=== PATIENT | female | born 1950 ===

== ENCOUNTER 2018-07-29 10:43 | Day surgery (SDC) | payer MEDICARE, MEDICAID ==
[2018-07-20 14:12] VITALS: BMI 35.9
[2018-07-29] MEDS ORDERED: Propofol 10 mg/ml Inj (20 ML) ONE (12:54)
[2018-07-29] MEDS ORDERED: Midazolam 2 MG/2 ML VIAL ONE (12:54)
[2018-07-29 15:02] VITALS: BP 117/53; PULSE 65; RESP 18; TEMP 98; O2SAT 97
--- NOTE | 2018-08-06 06:16 | OP ---
PROCEDURE DATE: 07/29/2018 PREOPERATIVE DIAGNOSIS: Urinary incontinence. POSTOPERATIVE DIAGNOSIS: Urinary incontinence. PROCEDURE PERFORMED ON THE PATIENT: Contigen suburethral implant. DESCRIPTION OF PROCEDURE: As follows: The patient was placed on the operating room table in the dorsal lithotomy position after having been given general anesthesia. Area of the groin was draped and prepped in a sterile manner. Using a 21 cystoscope, I used this to enter into the urethra, identified the areas of suburethral infection, and at this time I injected 2 vials of Contigen material in a sequential order of 2 o'clock, 4, 8, and 10 o'clock positions on the urethra in a proximal and a more distal manner. Once the entire product was delivered, clearly you could see a buildup of tissue in the urethra, which was the expected outcome. Once this was done, the cystoscope was removed just after I emptied the bladder and the patient then was taken from the operating room in good condition. Kiran Parsons MD
== END 2018-07-29 15:05 | disposition home or self-care (01) ==
LOC: C.SDS 10:43 → MERGE 10:43 → C.SDS 15:05
PROVIDERS: ATTEND Urology
DX: N39.498 Other specified urinary incontinence (principal); R32 Unspecified urinary incontinence
CPT/HCPCS: 53899; L8606